=== PATIENT | female | born 1955 | race Caucasian/White ===

== ENCOUNTER 2016-09-19 11:15 | Emergency (ER) | payer OTHER, MEDICARE ==
[~2016-09-19] VITALS: Ht 167.6 cm; Wt 81.6 kg
[~2016-09-19 11:15] MED LIST: ADVAIR DISKUS 21 DSK PO; AMOXICILLIN500 MG PO; AZITHROMYCIN250 M1 PO; BACTRIM DS 8001 TAB PO; CALCIUM1 TAB PO; CRESTOR 5MG5 MG PO; CRESTOR5 MG PO; CYCLOBENZAPRINE10 M3 PO; DELTASONE5 MG PO; DIFLUCAN150 MG PO; FUROSEMIDE40 MG PO; GENERLAC10 GM/15 M PO; K-DUR 20MEQ TA20 MEQ PO; KEFLEX500 MG PO; METOPROLOL SUCC25 MG PO; METOPROLOL SUCC50 M1 PO; MULTI VITAMINS1 TAB PO; OMEPRAZOLE40 MG PO; PERCOCET 325 MG1 TA2 PO; PERCOCET 325 MG1 TA3 PO; PERCOCET 325 MG1 TAB PO; POLYTRIM O200 GTT/BO OP; POLYTRIM O200 GTT/BO OPH; PROBIOTIC & ACI1 CAP PO; SPIRONOLACTONE50 MG PO; TESSALON PERLE100 M1 PO; VENTOLIN HFA18 GM INH; VITAMIN D32000 IU PO; XIFAXAN550 MG PO; ZOLPIDEM TART12.5 MG PO
[2016-09-19 11:40] VITALS: BP 136/85
--- NOTE | 2016-09-19 12:06 | ED NOSE COMPLAINT ---
History of Present Illness General Chief Complaint: Epistaxis/Nasal Foreign Body Stated Complaint: NOSE BLEED Source: patient Exam Limitations: no limitations Vital Signs & Intake/Output Vital Signs & Intake/Output Vital Signs Date Time Temp Pulse Resp B/P Pulse O2 O2 Flow FiO2 Ox Delivery Rate 09/19 1140 97.4 83 18 136/85 93 Room Air Allergies Coded Allergies: adhesive tape (SKIN PEELS OFF ONLY PAPER TAPE 09/07/16) codeine (Mild, NAUSEA 09/07/16) Reconcile Medications Albuterol Sulfate (Ventolin Hfa) 90 MCG HFA.AER.AD 2 PUF INH Q4-6 PRN PRN WHEEZING/SHORTNESS OF BREATH Azithromycin 250 MG TABLET 1 DP PO AD uri 2 the first day followed by 1 for days 2-5 Benzonatate (Tessalon Perle) 100 MG CAPSULE 1 CAP PO TID PRN COUGH Calcium/Sodium (Calcium) 1 TAB TAB 2 TAB PO DAILY SUPPLEMENT (Reported) CYCLOBENZAPRINE HCL (Cyclobenzaprine Hydrochloride) 10 MG TABLET 1 TAB PO BID PRN MUSLCE SPASMS (Reported) Lactulose (Generlac) (Unknown Strength) SOLUTION (Unknown Dose) PO 4 TIMES/DAY PRN CONSTIPATION (Reported) Metoprolol Succinate (Metoprolol Succinate XL) [address] 1 TAB PO QPM HEART ( Reported) Multivitamin (One Daily Multivitamin) 1 EACH TABLET 1 TAB PO DAILY SUPPLEMENT (Reported) Omeprazole 40 MG CAPSULE.DR 1 CAP PO DAILY GI (Reported) OXYCODONE HCL/ACETAMINOPHEN (Percocet 10-325 MG Tablet) 325 MG/10 MG TAB 1 TAB PO 5 TIMES/DAY PAIN (Reported) OXYCODONE HCL/ACETAMINOPHEN (Percocet 5-325 MG Tablet) 325 MG/5 MG TAB 1-2 TAB PO Q4-6 PRN PRN PAIN TEN...[id number] Prednisone (Deltasone) 5 MG TAB 1 TAB PO DAILY ADRENAL INSUFFICIENCY ( Reported) Rifaximin (Xifaxan) 550 MG TAB 1 TAB PO BID INFECTION (Reported) Rosuvastatin Calcium (Crestor) 5 MG TAB 5 MG PO DAILY CHOLESTEROL (Reported) Spironolactone 50 MG TABLET 1 TAB PO DAILY BP (Reported) Zolpidem Tartrate (Zolpidem Tartrate ER) 12.5 MG TAB.MPHASE 1 TAB PO QPM PRN SLEEP (Reported) Triage Note: C/O NOSE BLEED X 2 WEEKS (INTERMITTANT TO LEFT NARES. PT ON ASA 81 MG. Triage Nurses Notes Reviewed? yes Onset: Abrupt Duration: gone now, intermittent Timing: recent history Severity: moderate Severity Numbers: 5 No Modifying Factors: none HPI: Patient is a 61-year-old female who presents emergency room with a 2 to three- week history of intermittent in left nares nosebleeds. Patient states that the irritation of her nose makes her pick her nose and was bleeding then begins. Bleeding is stopped approximately after 10-20 minutes. Patient's last nosebleed was this morning. Denies any dizziness lightheadedness sensation shortness of breath Past History Travel History Traveled to [place] past 21 day No Medical History Any Pertinent Medical History? 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 No Review of Systems Review of Systems Constitutional: Reports: no symptoms. EENTM: Reports: see HPI, epistaxis. Respiratory: Reports: no symptoms. Cardiovascular: Reports: no symptoms. GI: Reports: no symptoms. Genitourinary: Reports: no symptoms. Musculoskeletal: Reports: no symptoms. Skin: Reports: no symptoms. Neurological/Psychological: Reports: no symptoms. Hematologic/Endocrine: Reports: see HPI, bleeding. Immunologic/Allergic: Reports: no symptoms. All Other Systems: Reviewed and Negative Physical Exam Physical Exam General Appearance: well developed/nourished, no apparent distress, alert, comfortable Nose: dried blood Comments: Well-developed well-nourished person in no acute distress HEENT: extraocular motion intact, no nystagmus. Pupils equally round and reactive to light and accommodation. Nose-bilateral nares are patent left nares noted erythematous papule which right blood to the septal region no active bleeding . External auditory canal and Tympanic membranes clear. Pharynx normal. No swelling or edema. Neck: Supple, no lymphadenopathy, normal range of motion without pain or tenderness Back: Nontender, no CVA tenderness. Cardiovascular: Regular rate and rhythms no murmurs rubs or gallops, normal JVP Respiratory: Chest nontender. No respiratory distress.breath sounds clear to auscultation bilaterally Extremity: No edema, no calf tenderness to palpation, normal and equal pulses. Neuro: Alert oriented x3, motor sensory normal Skin: No appreciable rash on exposed skin, skin is warm and dry. Psych: Mood and affect is normal, memory and judgment is normal. Progress Differential Diagnoses I considered the following diagnoses in my evaluation of the patient: [Nasal polyp, epistasis,] Plan of Care: Has mechanism of injury in terms of she does pick her nose which causes the nosebleed. No active bleeding noted however there was a 3 mm papule I used silver nitrate to the area and then applied bacitracin to the region. No active bleeding had occurred patient tolerated well. I stressed the importance to not have patient pick her nose which has been causing her symptoms and advised instructed patient to follow up with ear nose and throat doctor. And she will comply. Upon discharge patient has normal steady gait and no signs of anemia no signs of active bleeding. Initial ED EKG: none Departure Departure Disposition: HOME OR SELF CARE Condition: Stable Clinical Impression Primary Impression: Epistaxis Referrals: WALDEMAR HERNANDEZ,BRITNEY SCOTT (PCP/Family) Additional Instructions: As discussed please try not to touch or pick the nose as this may worsen your symptoms. Begin to apply bacitracin to the area for the next 4 days. If symptoms worsen such as infection return to emergency room. If bleeding reoccurs apply direct pressure for 10-15 minutes and if bleeding does not stop return to emergency room immediately. Tomorrow please follow-up with your nose and throat DR. MEDEIROS for further evaluation treatment. Departure Forms: Customer Survey General Discharge Information
[2017-03-03] MEDS ORDERED: ROBAXIN500 M1 PO (19:25)
[2017-03-03] MEDS ORDERED: OXYCODONE-ACET1 EAC1 PO (19:26)
[2017-03-03] MEDS ORDERED: SPIRONOLACTONE50 M1 PO (19:28)
[2017-03-03] MEDS ORDERED: GENERLAC10 GM/151 PO (19:28)
[2017-03-03] MEDS ORDERED: XIFAXAN550 M1 PO (19:28)
[2017-03-03] MEDS ORDERED: METOPROLOL SUCC25 M1 PO (19:29)
[2017-03-03] MEDS ORDERED: OMEPRAZOLE40 M1 PO (19:29)
[2017-03-03] MEDS ORDERED: ZOLPIDEM TART12.5 M1 PO (19:29)
[2017-03-03] MEDS ORDERED: CITALOPRAM HBR10 MG PO (19:29)
[2017-03-03] MEDS ORDERED: B-121000 MC3 PO (19:29)
[2017-03-03] MEDS ORDERED: PREDNISONE5 M1 PO (19:30)
[2017-03-03] MEDS ORDERED: CRESTOR5 M1 PO (19:30)
[2017-03-03] MEDS ORDERED: CALCIUM600 M3 PO (19:32)
[2017-03-03] MEDS ORDERED: ASPIRIN EC81 M1 PO (19:32)
== END 2016-09-19 13:19 ==
LOC: ERH 11:15
DX: R04.0 Epistaxis (principal)
CPT/HCPCS: 99282

== ENCOUNTER 2016-09-21 10:12 | Emergency (ER) | payer OTHER, MEDICARE ==
[~2016-09-21] VITALS: Ht 167.6 cm; Wt 81.6 kg
--- NOTE | 2016-09-21 10:27 | ED NOSE COMPLAINT ---
History of Present Illness General Chief Complaint: Epistaxis/Nasal Foreign Body Stated Complaint: BIBA, EPISTAXIS Source: patient Exam Limitations: no limitations Vital Signs & Intake/Output Vital Signs & Intake/Output Vital Signs Date Time Temp Pulse Resp B/P Pulse O2 O2 Flow FiO2 Ox Delivery Rate 09/21 1211 98.7 70 20 110/80 98 Room Air 09/21 1015 98.4 69 20 108/78 98 Room Air Allergies Coded Allergies: adhesive tape (SKIN PEELS OFF ONLY PAPER TAPE 09/07/16) codeine (Mild, NAUSEA 09/07/16) Reconcile Medications Albuterol Sulfate (Ventolin Hfa) 90 MCG HFA.AER.AD 2 PUF INH Q4-6 PRN PRN WHEEZING/SHORTNESS OF BREATH Azithromycin 250 MG TABLET 1 DP PO AD ANTIBIOTIC, INFECTION (Reported) 2 the first day followed by 1 for days 2-5 Calcium/Sodium (Calcium) 1 TAB TAB 2 TAB PO DAILY SUPPLEMENT (Reported) CYCLOBENZAPRINE HCL (Cyclobenzaprine Hydrochloride) 10 MG TABLET 1 TAB PO BID PRN MUSLCE SPASMS (Reported) Lactulose (Generlac) (Unknown Strength) SOLUTION (Unknown Dose) PO 4 TIMES/DAY PRN CONSTIPATION (Reported) Metoprolol Succinate (Metoprolol Succinate XL) [address] 1 TAB PO QPM HEART ( Reported) Multivitamin (One Daily Multivitamin) 1 EACH TABLET 1 TAB PO DAILY SUPPLEMENT (Reported) Omeprazole 40 MG CAPSULE.DR 1 CAP PO DAILY GI (Reported) OXYCODONE HCL/ACETAMINOPHEN (Percocet 10-325 MG Tablet) 325 MG/10 MG TAB 1 TAB PO 5 TIMES/DAY PAIN (Reported) OXYCODONE HCL/ACETAMINOPHEN (Percocet 5-325 MG Tablet) 325 MG/5 MG TAB 1-2 TAB PO Q4-6 PRN PRN PAIN TEN...[id number] Prednisone (Deltasone) 5 MG TAB 1 TAB PO DAILY ADRENAL INSUFFICIENCY ( Reported) Rifaximin (Xifaxan) 550 MG TAB 1 TAB PO BID INFECTION (Reported) Rosuvastatin Calcium (Crestor) 5 MG TAB 5 MG PO DAILY CHOLESTEROL (Reported) Spironolactone 50 MG TABLET 1 TAB PO DAILY BP (Reported) Zolpidem Tartrate (Zolpidem Tartrate ER) 12.5 MG TAB.MPHASE 1 TAB PO QPM PRN SLEEP (Reported) Triage Nurses Notes Reviewed? yes HPI: 61-year-old female arrived by ambulance to room 7 for a nosebleed that she has had for 2 weeks intermittently. She was seen in the emergency department recently for the nosebleed and it was cauterized. This morning the bleeding started at 8 AM again and continued until she got to the emergency department. The bleeding stopped on arrival. She denies any pain or recent trauma. (PANFILO CRUZ APRN) Past History Travel History Traveled to [place] past 21 day No Medical History Any Pertinent Medical History? 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 No (PANFILO CRUZ APRN) Review of Systems Review of Systems Constitutional: Reports: no symptoms. EENTM: Reports: epistaxis. Respiratory: Reports: no symptoms. Cardiovascular: Reports: no symptoms. GI: Reports: no symptoms. Genitourinary: Reports: no symptoms. Musculoskeletal: Reports: no symptoms. Skin: Reports: no symptoms. Neurological/Psychological: Reports: no symptoms. Hematologic/Endocrine: Reports: no symptoms. Immunologic/Allergic: Reports: no symptoms. All Other Systems: Reviewed and Negative (PANFILO CRUZ APRN) Physical Exam Physical Exam General Appearance: well developed/nourished, mild distress Head: atraumatic Eyes: Bilateral: PERRL, EOMI. Ears: Bilateral: canal normal, Tympanic normal. Nose: dried blood Mouth/Throat: normal mouth inspection, pharynx normal Neck: normal inspection, supple Cardiovascular/Respiratory: normal breath sounds, regular rate/rhythm Back: normal inspection Neurologic/Psych: awake, alert, oriented x 3, normal mood/affect Skin: intact, normal color, warm/dry (PANFILO CRUZ APRN) Progress Differential Diagnoses I considered the following diagnoses in my evaluation of the patient: Epistaxis recurrent Plan of Care: Will monitor patient for 20 minutes to half an hour and if bleeding returns we will put a nasal tampon in. Initial ED EKG: none Comments: 11:30 PM patient had recurrent bleeding of the left nares and a 7.5 cm Rhino Rocket was placed. She tolerated the procedure welL. 12:05 PM patient had no recurrent bleeding at this time. Instructed to follow up with ENT on Friday and return to the emergency department for any increased, unstoppable bleeding. I explained to Lorie that there may be dripping that is okay. (PANFILO CRUZ APRN) Departure Departure Time of Disposition: 1202 Disposition: HOME OR SELF CARE Condition: Stable Clinical Impression Primary Impression: Recurrent epistaxis Referrals: BRITNEY GARCIA (PCP/Family) Additional Instructions: Please follow up with Dr. GLEASON on Friday. Please return to the emergency department for any concerning symptoms. Departure Forms: Customer Survey General Discharge Information (PANFILO CRUZ APRN) PA/POSTAGE MACHINE OPERATOR Co-Sign Statement Statement: ED Attending supervision documentation- [] I saw and evaluated the patient. I have also reviewed all the pertinent lab results and diagnostic results. I agree with the findings and the plan of care as documented in the PA's/POSTAGE MACHINE OPERATOR's documentation. [X] I have reviewed the ED Record and agree with the PA's/POSTAGE MACHINE OPERATOR's documentation. [] Additions or exceptions (if any) to the PAs/POSTAGE MACHINE OPERATOR's note and plan are summarized below: [] (ZABRINA HERNANDEZ,NADYA) Procedures Epistaxis/Nasal Foreign Body Status: bleeding Clots Cleared Nasal Passage: by patient blowing Ext Pressure/Nose Pinch (min): 20 Inspected With: nasal speculum Bleeding Site: Left nares Nasal Rocket: Left: Inserted Anterior, Inserted Posterior. Progress: She tolerated procedure well and discharged home (PANFILO CRUZ APRN) ED Attending Observation Initial Observation Note: I have seen and personally examined LORIE STEEL on 09/21/16 at 1210. I agree with the current emergency department documentation. The disposition (admission or discharge) is uncertain at this time, she needs a period of observation for the following reason(s): The ED Nurse caring for this patient has been personally informed as to what the patient is being observed for. (PANFILO CRUZ APRN)
[2016-09-21] MEDS ORDERED: AZITHROMYCIN250 M1 PO (11:24)
[2016-09-21 12:11] VITALS: BP 110/80
[2017-03-03] MEDS ORDERED: ROBAXIN500 M1 PO (19:25)
[2017-03-03] MEDS ORDERED: OXYCODONE-ACET1 EAC1 PO (19:26)
[2017-03-03] MEDS ORDERED: XIFAXAN550 M1 PO (19:28)
[2017-03-03] MEDS ORDERED: GENERLAC10 GM/151 PO (19:28)
[2017-03-03] MEDS ORDERED: SPIRONOLACTONE50 M1 PO (19:28)
[2017-03-03] MEDS ORDERED: CITALOPRAM HBR10 MG PO (19:29)
[2017-03-03] MEDS ORDERED: B-121000 MC3 PO (19:29)
[2017-03-03] MEDS ORDERED: METOPROLOL SUCC25 M1 PO (19:29)
[2017-03-03] MEDS ORDERED: ZOLPIDEM TART12.5 M1 PO (19:29)
[2017-03-03] MEDS ORDERED: OMEPRAZOLE40 M1 PO (19:29)
[2017-03-03] MEDS ORDERED: CRESTOR5 M1 PO (19:30)
[2017-03-03] MEDS ORDERED: PREDNISONE5 M1 PO (19:30)
[2017-03-03] MEDS ORDERED: ASPIRIN EC81 M1 PO (19:32)
[2017-03-03] MEDS ORDERED: CALCIUM600 M3 PO (19:32)
== END 2016-09-21 12:12 ==
LOC: ERH 10:12
DX: R04.0 Epistaxis (principal)

== ENCOUNTER 2017-04-01 12:51 | Emergency (ER) | payer OTHER, MEDICARE ==
[~2017-04-01] VITALS: Ht 170.2 cm; Wt 89.8 kg
[~2017-04-01 12:51] MED LIST changes: +ASPIRIN EC81 M1 PO; +B-121000 MC3 PO; +CALCIUM600 M3 PO; +CITALOPRAM HBR10 MG PO; +CRESTOR5 M1 PO; +GENERLAC10 GM/151 PO; +METOPROLOL SUCC25 M1 PO; +OMEPRAZOLE40 M1 PO; +OXYCODONE-ACET1 EAC1 PO; +PREDNISONE5 M1 PO; +ROBAXIN500 M1 PO; +SPIRONOLACTONE50 M1 PO; +XIFAXAN550 M1 PO; +ZOLPIDEM TART12.5 M1 PO
[2017-04-01 12:54] VITALS: BP 131/72
--- NOTE | 2017-04-01 14:33 | ED UPPER/LOWER EXTREMITY COMPL ---
History of Present Illness General Chief Complaint: Laceration Procedure Stated Complaint: L LEG LAC Source: patient Exam Limitations: no limitations Vital Signs & Intake/Output Vital Signs & Intake/Output Vital Signs Date Time Temp Pulse Resp B/P B/P Pulse O2 O2 Flow FiO2 Mean Ox Delivery Rate 04/01 1254 98.1 70 20 131/72 97 Room Air Allergies Coded Allergies: adhesive tape (SKIN PEELS OFF ONLY PAPER TAPE 09/07/16) codeine (Mild, NAUSEA 09/07/16) Reconcile Medications Aspirin (Ecotrin*) 81 MG TABLET.DR 1 TAB PO DAILY HEART/BLOOD (Reported) Calcium (Elemental-Fr Calcarb) (Calcium) (Unknown Strength) TABLET (Unknown Dose) PO DAILY SUPPLEMENT (Reported) Citalopram Hydrobromide (Citalopram HBr) 10 MG TABLET 1 TAB PO DAILY MENTAL HEALTH (Reported) Cyanocobalamin (Vitamin B-12) (B-12) 1,000 MCG TABLET 1 TAB PO DAILY SUPPLEMENT (Reported) Lactulose (Generlac) 10 GRAM/15 ML SOLUTION 30 ML PO 4XDAILY PRN GI (Reported ) Methocarbamol (Robaxin) 500 MG TABLET 1 TAB PO TID PRN MUSCLE SPASMS Metoprolol Succinate 25 MG TAB 0.5 TAB PO QPM HEART (Reported) Omeprazole 40 MG CAPSULE.DR 1 CAP PO DAILY GI (Reported) Oxycodone HCl/Acetaminophen (Oxycodone-Acetaminophen 10-325) 10 MG-325 MG TABLET 1 TAB PO 5XDAILY PRN PAIN (Reported) Prednisone 5 MG TABLET 1 TAB PO DAILY STEROID (Reported) Rifaximin (Xifaxan) 550 MG TABLET 1 TAB PO BID GI (Reported) Rosuvastatin Calcium (Crestor) 5 MG TABLET 1 TAB PO DAILY CHOLESTEROL ( Reported) Spironolactone 50 MG TABLET 1 TAB PO DAILY BP (Reported) Zolpidem Tartrate (Zolpidem Tartrate ER) 12.5 MG TAB.MPHASE 1 TAB PO QPM PRN SLEEP (Reported) Triage Note: PT TO ED C/O LAC TO LEFT LEG, SUSTAINED ON FRIDAY FROM THE CORNER OF A TABLE. UNSURE OF LAST TETANUS SHOT. SKIN TEAR NOTED TO LLE. NEW DRESSING APPLIED IN TRIAGE. Triage Nurses Notes Reviewed? yes Onset: Abrupt Duration: constant Timing: recent history Severity: moderate Severity Numbers: 5 HPI: Patient is a 61-year-old female who presents to emergency room stating that on Friday 3 days ago while riding her motorized wheelchair she accidentally struck the corner of a table to the left lateral aspect of her lower leg resulting in a skin tear where she has tried to follow-up with multiple providers for EVALUATION in which she was unsuccessful, and which she presented emergency room. Patient has been putting peroxide on the wound. Denies any signs of infection to the area denies any fever chills. (BANDRA ALONSO) Past History Travel History Traveled to [place] past 21 day No Medical History Any Pertinent Medical History? 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 No (BANDAR ALONSO) Review of Systems Review of Systems Constitutional: Reports: no symptoms. EENTM: Reports: no symptoms. Respiratory: Reports: no symptoms. Cardiovascular: Reports: no symptoms. Gastrointestinal/Abdominal: Reports: no symptoms. Genitourinary: Reports: no symptoms. Musculoskeletal: Reports: see HPI. Skin: Reports: see HPI. Neurological/Psychological: Reports: no symptoms. Hematologic/Endocrine: Reports: see HPI, bleeding. Immunological: Reports: no symptoms. All Other Systems: Reviewed and Negative (BANDAR ALONSO) Physical Exam Physical Exam General Appearance: no apparent distress, alert, comfortable Head: atraumatic Eyes: Bilateral: normal appearance. Ears, Nose, Throat: hearing grossly normal Neck: normal inspection Back: normal inspection Neurologic/Tendon: normal motor functions, normal tendon functions, responds to pain, no evidence tendon injury Skin: normal color Diagram Legs Front/Back 1) 3 CM SKIN TEAR FLAP SUPERFICIAL DEPTH, NO SURROUNDING ERYTHEMA, WARMTH, DISCHARGE. (BANDAR ALONSO) Progress Differential Diagnosis: arterial insufficiency, compartment syndrome, contusion, dislocation, DVT, fracture, septic arthritis, sprain, tendon injury Plan of Care: No signs of infection of the left leg skin tear. I cleaned the wound with peroxide and sterile water and using benzoin for the peripheral edge of each side I then grossly approximated the wound with Steri-Strips. I then applied TEFLA and Curlex pad. Patient will prophylactically be administered antibiotics. Patient strongly advised to follow up with established appointment with Dr. Quezada No concerns at this time of fracture or infection (BANDAR ALONSO) Departure Departure Disposition: HOME OR SELF CARE Condition: Stable Clinical Impression Primary Impression: Noninfected skin tear of left leg Referrals: BRITNEY GARCIA (PCP/Family) Additional Instructions: As discussed begin the prescription of Keflex as directed to prevent infection. Begin the prescription Diflucan for the antibiotic use. Begin to changed dressings once a day and if you note signs of infection redness, pain, swelling, discharge return to emergency room. The Steri-Strips that have been applied to you in the emergency room will fall off on their own an approximate 4-5 days. Follow-up with your primary care doctor on Friday for recheck of wound. Keep area dry and clean YOU can Departure Forms: Customer Survey General Discharge Information (BANDAR ALONSO) PA/CARD ASSEMBLER Co-Sign Statement Statement: ED Attending supervision documentation- [] I saw and evaluated the patient. I have also reviewed all the pertinent lab results and diagnostic results. I agree with the findings and the plan of care as documented in the PA's/CARD ASSEMBLER's documentation. [x] I have reviewed the ED Record and agree with the PA's/CARD ASSEMBLER's documentation. [] Additions or exceptions (if any) to the PAs/CARD ASSEMBLER's note and plan are summarized below: [] (HARSHAL PRECIADO DO
== END 2017-04-01 15:24 ==
LOC: ERH 12:51
DX: S81.812A Laceration without foreign body, left lower leg, initial encounter (principal); W22.03XA Walked into furniture, initial encounter; Y93.89 Activity, other specified; Y92.9 Unspecified place or not applicable
CPT/HCPCS: 90471; 90714